=== PATIENT | male | born 1950 | race Caucasian/White ===

== ENCOUNTER → 2017-10-19 | Outpatient (CLI) | payer MEDICARE ==
[2017-10-19 16:02] LABS: BASO # 0.1 (0.0-0.2); BASO % 1.1 % (0.0-2.0); EOS # 0.4 (0.0-0.7); EOS % 4.9 % (0-4.0); GRAN # 3.3 (1.4-6.5); GRAN % 45.2 % (42.2-75.2); HEMATOCRIT 43.3 % (42.0-52.0); HEMOGLOBIN 14.9 g/dl (13.5-18.0); LYMPH # 2.8 (1.2-3.4); LYMPH % 37.7 % (20.0-51.0); MEAN CELL VOLUME 96 fl (80.0-100.0); MEAN CORPUSCULAR HEMOGLOBIN 33 pg (27.0-31.0); MEAN CORPUSCULAR HGB CONC 34 g/dl (33.0-37.0); MEAN PLATELET VOLUME 9.9 fl (7.4-10.4); MONO # 0.8 (0.1-0.6); PLATELET COUNT 205 K/mm3 (130-400); RED BLOOD COUNT 4.52 M/mm3 (4.20-5.60); REDCELL DISTRIBUTION WIDTH-CV 12.3 % (11.5-14.5)
[2017-10-19 16:14] LABS: ALBUMIN 4.1 gm/dL (3.5-5.0); CHOLESTEROL RISK RATIO 4.2; CREATININE, serum 1.24 mg/dL (0.66-1.25); POTASSIUM 4.5 mmol/L (3.4-5.0); TOTAL PROTEIN 8.4 gm/dL (6.4-8.2)
[2017-10-19 16:42] LABS: TSH w REFLEX 2.64 uIU/mL (0.465-4.680)
== END ==
LOC: COL.LAB 11:47
PROVIDERS: Family Medicine
DX: I10 Essential (primary) hypertension (principal); E03.9 Hypothyroidism, unspecified; Z13.220 Encounter for screening for lipoid disorders

== ENCOUNTER → 2018-07-06 | Outpatient (CLI) | payer MEDICARE | LOC: COL.RAD 14:04 | DX: R05 Cough (principal) ==

== ENCOUNTER → 2018-12-22 | Outpatient (CLI) | payer MEDICARE ==
[2018-12-22 19:23] LABS: HEMATOCRIT 43.1 % (42.0-52.0); HEMOGLOBIN 14.8 g/dl (13.5-18.0); MEAN CELL VOLUME 97 fl (80.0-100.0); MEAN CORPUSCULAR HEMOGLOBIN 33 pg (27.0-31.0); MEAN CORPUSCULAR HGB CONC 34 g/dl (33.0-37.0); MEAN PLATELET VOLUME 10.1 fl (7.4-10.4); PLATELET COUNT 201 K/mm3 (130-400); RED BLOOD COUNT 4.45 M/mm3 (4.20-5.60); REDCELL DISTRIBUTION WIDTH-CV 12.3 % (11.5-14.5)
[2018-12-22 19:35] LABS: ALBUMIN 4.1 gm/dL (3.5-5.0); BILIRUBIN,TOTAL 0.5 mg/dL (0.0-1.0); CALCIUM 9.3 mg/dL (8.4-10.2); CHOLESTEROL RISK RATIO 5.3; CREATININE, serum 1.07 (0.66-1.25); POTASSIUM 4.8 mmol/L (3.4-5.0); TOTAL PROTEIN 7.9 gm/dL (6.4-8.2)
[2018-12-22 20:04] LABS: THYROID STIMULATING HORMONE 1.24 uIU/mL (0.465-4.680)
[2018-12-22 20:44] LABS: PSA-TOTAL 0.28 ng/mL (0-4)
== END ==
LOC: ZCOL.LAB 16:51
PROVIDERS: Family Medicine
DX: Z13.220 Encounter for screening for lipoid disorders (principal); I10 Essential (primary) hypertension; E03.9 Hypothyroidism, unspecified
CPT/HCPCS: G0103

== ENCOUNTER → 2018-12-22 | Outpatient (CLI) | payer MEDICARE | LOC: ZCOL.LAB 16:36 | DX: Z12.5 Encounter for screening for malignant neoplasm of prostate (principal); I10 Essential (primary) hypertension ==

== ENCOUNTER 2019-02-03 17:36 | Emergency (ER) | payer MEDICARE ==
[~2019-02-03] VITALS: Ht 167.6 cm; Wt 76.4 kg
[2019-02-03] MEDS ORDERED: VASOTEC 10M10 MG/TAB PO (17:57)
[2019-02-03] MEDS ORDERED: LEVOXYL0.1 MG PO (17:57)
[2019-02-03 18:38] LABS: BASO # 0.1 (0.0-0.2); BASO % 0.4 % (0.0-2.0); EOS # 0.4 (0.0-0.7); EOS % 1.7 % (0-4.0); GRAN # 16.1 (1.4-6.5); GRAN % 79.7 % (42.2-75.2); HEMATOCRIT 42.8 % (42.0-52.0); LYMPH # 1.7 (1.2-3.4); LYMPH % 8.2 % (20.0-51.0); MEAN CELL VOLUME 94 fl (80.0-100.0); MEAN CORPUSCULAR HEMOGLOBIN 33 pg (27.0-31.0); MEAN CORPUSCULAR HGB CONC 35 g/dl (33.0-37.0); MEAN PLATELET VOLUME 9.7 fl (7.4-10.4); MONO # 1.9 (0.1-0.6); MONO % 9.3 % (1.7-9.3); PLATELET COUNT 240 K/mm3 (130-400); RED BLOOD COUNT 4.54 M/mm3 (4.20-5.60)
[2019-02-03 18:51] LABS: ALBUMIN 4.1 gm/dL (3.5-5.0); BILIRUBIN,TOTAL 0.9 mg/dL (0.0-1.0); CALCIUM 9.2 mg/dL (8.4-10.2); CREATININE, serum 1.31 (0.66-1.25); POTASSIUM 4.5 mmol/L (3.4-5.0); TOTAL PROTEIN 8.3 gm/dL (6.4-8.2)
[2019-02-03 19:27] LABS: C-REACTIVE PROTEIN 20.3 mg/dL (0.0-0.9)
[2019-02-03 19:29] LABS: EOSINOPHIL 5 % (0-4); LYMPHOCYTE 7 % (20.0-51.0); NEUTROPHILS 79 % (42.0-75.2); PLATELET ESTIMATE NORMAL (NORMAL)
[2019-02-03] MEDS ORDERED: LEVAQUIN 750MG750 M1 PO (20:57)
[2019-02-03 21:26] VITALS: BP 95/60; PULSE 72; TEMP 98.9
[2019-02-05] MEDS ORDERED: LIPITOR 40MG TA40 MG PO (08:23)
[2019-02-05] MEDS ORDERED: PHENERGAN W/CO120 M1 PO (08:23)
[2019-02-05] MEDS ORDERED: MOTRIN 200200 MG/TAB PO (11:25)
[2019-02-05] MEDS ORDERED: TYLENOL 325MG325 MG PO (11:26)
== END 2019-02-03 21:30 | disposition home or self-care (01) ==
LOC: COL.ER 17:36
PROVIDERS: Emergency Medicine
DX: J18.9 Pneumonia, unspecified organism (principal)
CPT/HCPCS: J1885; J7030

== ENCOUNTER → 2021-01-29 | Outpatient (CLI) | payer MEDICARE ==
[~2021-01-29] MED LIST: LEVAQUIN 750MG750 M1 PO; LEVOXYL0.1 MG PO; LIPITOR 40MG TA40 MG PO; MOTRIN 200200 MG/TAB PO; PHENERGAN W/CO120 M1 PO; TYLENOL 325MG325 MG PO; VASOTEC 10M10 MG/TAB PO
== END ==
LOC: COL.VAS 12:08
DX: I08.0 Rheumatic disorders of both mitral and aortic valves (principal)

== ENCOUNTER → 2021-12-02 | Outpatient (CLI) | payer MEDICARE | LOC: COL.LAB 15:45 | DX: J32.9 Chronic sinusitis, unspecified (principal); J98.4 Other disorders of lung; Z20.822 Contact with and (suspected) exposure to COVID-19 ==

== ENCOUNTER 2023-12-17 10:48 | Inpatient (IN) | payer MEDICARE ==
[~2023-12-17] VITALS: Ht 165.1 cm; Wt 76.1 kg
[~2023-12-17 10:48] MED LIST changes: +ASTELIN NASAL S34 ML NS; +CALCIUM 600 PLU1 TAB PO; +CELLCEPT 5500 MG/TAB PO; +COZAAR100 MG PO; +CVS SPECTRAVIT1 EA15 PO; -LEVOXYL0.1 MG PO; +OFEV150 MG PO; +OMNICEF 300MG300 MG PO; +OXYGEN NASAL.CANN; +PEPCID40 MG PO; +PREDNISONE20 MG PO; +SYNTHROID0.112 MG/T PO; +VENTOLIN0.09 MG IH; +VTAMINC250TA PO
[2023-12-17] MEDS ORDERED: Albuterol/Ipratropium 3 MG-0.5 MG/3 ML Neb Soln IH ONE (11:15)
[2023-12-17 11:22] LABS: BASO # 0.1 K/mm3 (0.0-0.2); BASO % 0.3 % (0.0-2.0); EOS # 0.6 K/mm3 (0.0-0.7); EOS % 4.2 % (0.0-4.0); GRAN # 12.1 K/mm3 (1.4-6.5); GRAN % 79.9 % (42.2-75.2); LYMPH # 1.6 K/mm3 (1.2-3.4); LYMPH % 10.3 % (20.0-51.0); MEAN CELL VOLUME 104 fl (80.0-100.0); MEAN CORPUSCULAR HGB CONC 34 g/dl (33.0-37.0); MEAN PLATELET VOLUME 9.7 fl (7.4-10.4); MONO # 0.7 K/mm3 (0.1-0.6); MONO % 4.6 % (1.7-9.3); PLATELET COUNT 235 K/mm3 (130-400); RED BLOOD COUNT 5.46 M/mm3 (4.20-5.60); REDCELL DISTRIBUTION WIDTH-CV 14.4 % (11.5-14.5)
[2023-12-17 11:24] LABS: HEMATOCRIT 56.7 % (42.0-52.0); HEMOGLOBIN 19.4 g/dl (13.5-18.0); MEAN CORPUSCULAR HEMOGLOBIN 36 pg (27-31)
[2023-12-17 11:32] LABS: ALBUMIN 3.8 g/dL (3.4-4.8); BILIRUBIN,TOTAL 1.7 mg/dL (0.2-1.2); C-REACTIVE PROTEIN 4.95 mg/dL (0.00-0.50); CALCIUM 10.2 mg/dL (8.4-10.2); CREATININE, serum 1.43 mg/dL (0.72-1.25); POTASSIUM 4.8 mEq/L (3.5-4.5); TOTAL PROTEIN 8.7 g/dl (6.2-8.1)
[2023-12-17 11:38] LABS: TROPONIN-I 0.016 ng/mL (0.00-0.033)
[2023-12-17] MEDS ORDERED: dexAMETHasone 10 MG/ML VIAL IV ONE (12:15)
[2023-12-17] MEDS ORDERED: Cefepime 1 G in Water For Injection,Sterile 10 ML IV ONE (13:00)
[2023-12-17] MEDS ORDERED: PREDNISONE10 MG PO (13:00)
[2023-12-17] MEDS ORDERED: XALATAN EYE DROPS OD (13:01)
--- NOTE | 2023-12-17 14:00 | NUR ---
PATIENT ARRIVED FROM ER AWAKE AND ALERT, SITITNG UP IN BED. RESPIRATORY AT BEDSIDE. PATIENT TOOK AWHILE TO RECOVER FROM TRANSFER, O2 AT 9L OM WITH AN O2 SATURATION OF 90%. PER RT THIS RN TO LEAVE O2 AT 9 UNLESS PATIENT O2 REACHES 95% OR GREATER. PATIENT SITTING UP AT EDGE OF BED. ASSESSMENT COMPLETE. PATIENT DENIES ANY NEEDS OR COMPLAINTS AT THIS TIME. CALL LIGHT WITHIN REACH.
[2023-12-17 15:20] VITALS: BP 128/83; PULSE 65; TEMP 97.5
[2023-12-17] MEDS ORDERED: Albuterol/Ipratropium 3 MG-0.5 MG/3 ML Neb Soln IH PRN (16:15)
[2023-12-17] MEDS ORDERED: Ondansetron 4 MG/2 ML VIAL IV PRN (16:15)
[2023-12-17] MEDS ORDERED: Acetaminophen 500 MG TAB PO PRN (16:15)
[2023-12-17] MEDS ORDERED: NS 1,000 ML IV SCH (16:30)
[2023-12-17] MEDS ORDERED: Cefepime 1 G in Water For Injection,Sterile 10 ML IV SCH (16:45)
[2023-12-17] MEDS ORDERED: Albuterol/Ipratropium 3 MG-0.5 MG/3 ML Neb Soln IH SCH (19:00)
--- NOTE | 2023-12-17 19:36 | NUR ---
PATIENT TOOK HIS HOME DOSE OF OFEV WITH THIS RN PRESENT.
--- NOTE | 2023-12-17 19:48 | NUR ---
CALL PLACED TO [facility]. PATIENT DENIED DNR STATUS AND STATED, " I WASN'T INFORMED OF THAT EXACT WORDING." PATIENT EDUCATION PROVIDED AND PATIENT WISHES TO BE A FULL CODE. HE STATED, "I JUST DON'T WANT TO REMAIN ON LIFE SUPPORT IF i AM IN A VEGETATIVE STATE." NEW ORDERS UNDERWAY TO REPLACE DNR CODE STATUS PER TORB WITH HOSPITALIST.
[2023-12-17 20:04] VITALS: BP 122/62; PULSE 89; TEMP 97.7
[2023-12-17] MEDS ORDERED: Patient's Own Medication Item PO SCH (21:00)
[2023-12-17] MEDS ORDERED: Latanoprost 0.005% Ophth Soln 2.5 ML BOTTLE OP SCH (21:00)
[2023-12-17] MEDS ORDERED: Famotidine 20 MG TAB PO SCH (21:00)
[2023-12-17] MEDS ORDERED: Calcium Carb/Vit D3 500 mg-200 Units TAB PO SCH (21:00)
[2023-12-17] MEDS ORDERED: dexAMETHasone 10 MG/ML VIAL IV SCH (21:00)
[2023-12-17] MEDS ORDERED: Azelastine 0.1% Nasal Spray 30 ML BOTTLE NS SCH (21:00)
[2023-12-17] MEDS ORDERED: Doxycycline Monohydrate 100 MG CAP PO SCH (21:00)
[2023-12-17 21:40] VITALS: BP_SYST 122
--- NOTE | 2023-12-17 22:20 | NUR ---
HOSPITALIST CALLED. PATIENT INQUIRING ABOUT [place] BEING HELD. CREATINIE SLIGHTLY ELEVATED. ARB HELD. PATIENT EDUCATION PROVIDED
[2023-12-18] VITALS (13 sets, daily range): BP systolic 112–153; BP diastolic 70–77; PULSE 57–95; TEMP 97.5–98.1
[2023-12-18] MEDS ORDERED: Cefepime 1 G in Water For Injection,Sterile 10 ML IV SCH
--- NOTE | 2023-12-18 06:00 | NUR ---
PATIENT HAD UNEVENTFUL NIGHT. HE REMAINS ON 7L O2 ON HIGH FLOW NC WITH HUMIDITY. OWEN WAS OBSERVED WHEN AMBULATING TO RESTROOM. DENIES CHEST PAIN. STATES NO NEEDS AT BEDSIDE REPORT.
[2023-12-18 07:04] LABS: MEAN CELL VOLUME 102 fl (80.0-100.0); MEAN CORPUSCULAR HGB CONC 35 g/dl (33.0-37.0); MEAN PLATELET VOLUME 9.6 fl (7.4-10.4); PLATELET COUNT 191 K/mm3 (130-400); RED BLOOD COUNT 4.48 M/mm3 (4.20-5.60); REDCELL DISTRIBUTION WIDTH-CV 13.7 % (11.5-14.5)
[2023-12-18 07:14] LABS: HEMATOCRIT 45.8 % (42.0-52.0); HEMOGLOBIN 15.9 g/dl (13.5-18.0); MEAN CORPUSCULAR HEMOGLOBIN 35 pg (27-31)
[2023-12-18 07:25] LABS: CALCIUM 8.9 mg/dL (8.4-10.2); CREATININE, serum 0.98 mg/dL (0.72-1.25); POTASSIUM 5.1 mEq/L (3.5-4.5)
[2023-12-18 07:54] LABS: BAND 3 % (0-10); LYMPHOCYTE 11 % (20.0-51.0); NEUTROPHILS 84 % (42.0-75.2); PLATELET ESTIMATE NORMAL (NORMAL)
[2023-12-18] MEDS ORDERED: Ascorbic Acid 500 MG TAB PO SCH (09:00)
[2023-12-18] MEDS ORDERED: Latanoprost 0.005% Ophth Soln 2.5 ML BOTTLE OP SCH (09:00)
[2023-12-18] MEDS ORDERED: Multivitamin TAB PO SCH (09:00)
[2023-12-18] MEDS ORDERED: Iohexol 300 - 100 ML VIAL IV ONE (09:44)
[2023-12-18] MEDS ORDERED: NS 100 ML IV.SOLN. IY SCH (09:44)
--- NOTE | 2023-12-18 10:57 | NUR ---
SW met with patient to complete intake and discuss discharge planning. Patient confirmed that he resides in his home with his Jenny Nieves [phone] in [place]. Patient PCP is Dr Adorno and pharmacy of choice is [facility]. Patient has DPOA on file and reports that he currently uses oxygen in his home with concentrator and portables-no additional equipment reported. Patient informed SW that he is independent with his ADLs. Patient is anticipatin to discharge to his home with at this time.
[2023-12-18] MEDS ORDERED: guaiFENesin 200 MG TAB PO SCH (14:00)
[2023-12-18] MEDS ORDERED: guaiFENesin ER 600 MG **** subs to guaiFENesin 200 MG PO SCH (21:00)
[2023-12-19] VITALS (12 sets, daily range): BP systolic 114–153; BP diastolic 61–85; PULSE 74–89; TEMP 97.5–98.2
--- NOTE | 2023-12-19 04:50 | NUR ---
ASSESSMENT COMPLETE FOR FUR TRIMMER. PT HAD A PRETTY UNEVENTFUL NIGHT. PT DID HAVE A PRETTY SUBSTANTIAL COUGH. PT GIVEN SCHEDULED MUCUS RELIEF, BUT MAY NEED A COUGH SUPPRESSANT AT SOME POINT, BUT HAS NOT REQUESTED ANYTHING OF YET. PT DENIED GENERAL PAIN, CHEST PAIN, PALPITATIONS, SOB, N,V,D OR DIZZINESS. CALL LIGHT WITHIN REACH.
--- NOTE | 2023-12-19 07:36 | NUR ---
SPO2 ON 6LPM HIGH FLOW CANNULA, 91%, PC WHITE THICK SPUTUM, HR 68, SHAUN WEL.
--- NOTE | 2023-12-19 08:00 | NUR ---
PATIENT IS A&O AND MOVES AROUND ROOM INDEPENDENTLY WITH STEADY GAIT. PATIENT DOES REPORT SOA WITH ACTIVITY. 02 @ 6L PER NC WITH SATS IN LOW 90'S, GOAL IS TO WEAK OXYGEN DOWN. PATIENT REPORTS HE USES 02 @ 2L HS AT HOME AND PRN DURING THE DAY. PATIENT NOTED INCREASED 02 NEEDS AT HOME AND CAME IN TO [facility]. PATIENT ON IV STEROIDS. PATIENT ALSO ON AN EXPENSIVE HOME MEDS FOR HIS LUNG DISEASE WHICH WAS TAKEN WITH HIS AM MEDS, SEE MAR. NOTED COARSE, BARKY COUGH. GAVE PO MUCUS RELIEF, SEE MAR. LEFT FORARM IV TO INT. NO C/O N/V. TOLERATING GENERAL DIET. HEAD TO TOE ASSESSMENT COMPLETE.
--- NOTE | 2023-12-19 08:10 | NUR ---
awake sitting up in bed ready to have breakfast, alert and oriented, denies needs at this time
--- NOTE | 2023-12-19 10:44 | NUR ---
Initial visit; Patient very nice gentleman who stated he has not spiritual issues he would like to discuss though thanked Adjunct English Instructor for looking in on him. Adjunct English Instructor wished him well.
--- NOTE | 2023-12-19 15:06 | NUR ---
PATIENT BENIFITS MORE FROM MASK TX, DOES NOT COUGH THROW RT TX, LESS LINEAR FLOW.
--- NOTE | 2023-12-19 16:30 | NUR ---
Patient now back on 4 lpm as at home, SPO2 92-93%.
[2023-12-19] MEDS ORDERED: predniSONE 10 MG TAB PO SCH (17:00)
--- NOTE | 2023-12-19 20:40 | NUR ---
Patient assessed around 2024. Alert and oriented, and able to make needs known. Denies having pain and discomfort. Peripheral INT to left forearm. Continues to have SOB and dypsnea, increases with exertion. LS CTA. Currently on oxygen at 3.5 L/min via NC. Reports baseline is room air during the day, and 2 L at night. HRR. BSAx4. No edema. Voices no questions, needs, or concerns at this time. In recliner with call light within reach.
[2023-12-20] VITALS: BP_SYST 125
[2023-12-20 03:21] VITALS: BP 125/83; PULSE 75; TEMP 98.2
[2023-12-20 04:03] VITALS: BP_SYST 125
--- NOTE | 2023-12-20 06:15 | NUR ---
Patient has denied having pain and discomfort this shift. Oxygen currently at 3 L/min via NC. Voices no questions, needs, or concerns at this time. In bed with call light within reach.
[2023-12-20 06:34] LABS: BASO % 0.1 % (0.0-2.0); EOS % 0.1 % (0.0-4.0); GRAN # 12.7 K/mm3 (1.4-6.5); GRAN % 87.4 % (42.2-75.2); HEMOGLOBIN 15.3 g/dl (13.5-18.0); LYMPH # 0.8 K/mm3 (1.2-3.4); LYMPH % 5.3 % (20.0-51.0); MEAN CELL VOLUME 102 fl (80.0-100.0); MEAN CORPUSCULAR HEMOGLOBIN 35 pg (27-31); MEAN CORPUSCULAR HGB CONC 35 g/dl (33.0-37.0); MEAN PLATELET VOLUME 9.4 fl (7.4-10.4); MONO % 6.5 % (1.7-9.3); PLATELET COUNT 190 K/mm3 (130-400); RED BLOOD COUNT 4.33 M/mm3 (4.20-5.60); REDCELL DISTRIBUTION WIDTH-CV 13.7 % (11.5-14.5)
[2023-12-20 06:59] LABS: CREATININE, serum 1.04 mg/dL (0.72-1.25); MAGNESIUM 2.3 mg/dL (1.6-2.6)
--- NOTE | 2023-12-20 07:16 | NUR ---
PATIENT ON 3 LPM OVERNIGHT. SPO2 90% THIS AM. SECRETIONS LESS NOW. IMPROVEMENT OVER LAST 2 DAYS.
[2023-12-20 07:43] VITALS: BP 128/71; PULSE 74; TEMP 98.1
[2023-12-20 09:00] VITALS: BP_SYST 147
--- NOTE | 2023-12-20 10:36 | NUR ---
PATIENT REQUIRES 3LPM AT REST >88% pPatient requires 5 lpm while ambulating to be .88%.
[2023-12-20 11:35] VITALS: BP 147/80; PULSE 80; TEMP 97.5
[2023-12-20] MEDS ORDERED: DOXYCYCLINE 10100 MG PO (11:43)
[2023-12-20] MEDS ORDERED: OXYGEN NASAL.CANN (11:44)
[2023-12-20] MEDS ORDERED: PREDNISONE20 MG PO (11:56)
--- NOTE | 2023-12-20 13:57 | NUR ---
[employer] Consultant met with patient to present and review IM. Patient verbalized understanding and provided signature. SW placed form in chart and provided copy to patient. SW contacted [employer] and faxed updated clinicals, exercise oximetry, and script. SW advised patient to contact [employer] once he is home so a concentrator that can go above 5 liters can be delivered, per instructions from [employer]. Patient verbalized understanding and advised he has a portable tank to get home with. Discharge Plan: Home
--- NOTE | 2023-12-20 14:07 | NUR ---
Patient alert and oriented x4. Shift assessment complete this morning, denies pain. Follows verbal commands, does not require assistance with ADLs. Dyspnea noted on exertion with oxygen in place, but patient tolerating activity at baseline. Voices no concerns. Discharge orders obtained, discharge paperwork discussed including follow-up appointments, antibiotic prescription and steroid taper, as well as education packets. Patient verbalized understanding. IV discontinued to left forearm with no complications, tip intact. Patient escorted to 's car via wheelchair by staff.
== END 2023-12-20 13:50 | disposition home or self-care (01) | DRG 189 ==
LOC: COL.ER 10:48 → MEDICAL 12:44
PROVIDERS: Emergency Medicine; Physician Assistant; ADMIT Internal Medicine
DX: J96.21 Acute and chronic respiratory failure with hypoxia (principal); Z66 Do not resuscitate; E78.5 Hyperlipidemia, unspecified; E03.9 Hypothyroidism, unspecified; E87.6 Hypokalemia; D72.829 Elevated white blood cell count, unspecified; J84.10 Pulmonary fibrosis, unspecified; I12.9 Hypertensive chronic kidney disease with stage 1 through stage 4 chronic kidney disease, or unspecified chronic kidney disease; T38.0X5A Adverse effect of glucocorticoids and synthetic analogues, initial encounter; J47.9 Bronchiectasis, uncomplicated; N18.9 Chronic kidney disease, unspecified; M85.80 Other specified disorders of bone density and structure, unspecified site; Z79.899 Other long term (current) drug therapy; Z99.81 Dependence on supplemental oxygen; Z79.890 Hormone replacement therapy; Z23 Encounter for immunization
CPT/HCPCS: J0692; J1100; J1650; J7030; J7512; Q9967

== ENCOUNTER 2024-01-01 17:16 | Emergency (ER) | payer MEDICARE ==
[~2024-01-01] VITALS: Ht 167.6 cm; Wt 77.3 kg
[~2024-01-01 17:16] MED LIST changes: +DOXYCYCLINE 10100 MG PO; +PREDNISONE10 MG PO; +XALATAN EYE DROPS OD
[2024-01-01 17:21] VITALS: TEMP 98.2
[2024-01-01 17:42] LABS: BASO % 0.2 % (0.0-2.0); EOS % 0.3 % (0.0-4.0); GRAN # 11.6 K/mm3 (1.4-6.5); GRAN % 89.6 % (42.2-75.2); HEMATOCRIT 50.8 % (42.0-52.0); HEMOGLOBIN 17.3 g/dl (13.5-18.0); LYMPH # 0.8 K/mm3 (1.2-3.4); LYMPH % 5.9 % (20.0-51.0); MEAN CELL VOLUME 101 fl (80.0-100.0); MEAN CORPUSCULAR HEMOGLOBIN 35 pg (27-31); MEAN CORPUSCULAR HGB CONC 34 g/dl (33.0-37.0); MEAN PLATELET VOLUME 9.5 fl (7.4-10.4); MONO # 0.4 K/mm3 (0.1-0.6); MONO % 3.1 % (1.7-9.3); PLATELET COUNT 181 K/mm3 (130-400); RED BLOOD COUNT 5.02 M/mm3 (4.20-5.60); REDCELL DISTRIBUTION WIDTH-CV 13.8 % (11.5-14.5)
[2024-01-01 18:00] LABS: ALBUMIN 3.2 g/dL (3.4-4.8); CALCIUM 9.4 mg/dL (8.4-10.2); CREATININE, serum 1.31 mg/dL (0.72-1.25); POTASSIUM 5.2 mEq/L (3.5-4.5); TOTAL PROTEIN 7.4 g/dl (6.2-8.1)
[2024-01-01 18:06] LABS: TROPONIN-I 0.014 ng/mL (0.00-0.033)
[2024-01-01] MEDS ORDERED: NS 1,000 ML IV ONE (18:30)
[2024-01-01] MEDS ORDERED: Iohexol 300 - 100 ML VIAL IV ONE (18:42)
[2024-01-01] MEDS ORDERED: NS 50 ML IV ONE (18:43)
[2024-01-01] MEDS ORDERED: methylPREDNISolone Sod Succ 40 MG/ML VIAL IV SCH (19:45)
[2024-01-01] MEDS ORDERED: NS 1,000 ML IV SCH (21:00)
[2024-01-01 22:00] VITALS: BP 122/99; PULSE 85
== END 2024-01-01 22:00 | disposition short-term general hospital (02) ==
LOC: COL.ER 17:16
PROVIDERS: Nurse Practitioner Primary Care
DX: J96.01 Acute respiratory failure with hypoxia (principal); E87.5 Hyperkalemia; E87.20 Acidosis, unspecified; J84.9 Interstitial pulmonary disease, unspecified; Z99.81 Dependence on supplemental oxygen
CPT/HCPCS: J1650; J2919; J7030; Q9967